=== PATIENT | male | born 1950 | race Caucasian/White ===

== ENCOUNTER 2018-12-04 09:37 | Day surgery (SDC) | payer MEDICARE, OTHER ==
[~2018-12-04] VITALS: Ht 167.6 cm; Wt 81.8 kg
[2018-12-04 10:09] LABS: HEMATOCRIT 44.2 % (42.0-54.0); HEMOGLOBIN 15.3 g/dL (13.5-17.5); MCHC 34.6 g/dL (31.0-37.0); MCV 89.5 fL (80.0-100.0); MEAN PLATELET VOLUME 9.7 fL (7.4-10.4); RBC 4.94 10x6/uL (4.20-6.10); RDW 14.1 % (11.5-14.5); WBC 12.2 10x3/uL (4.8-10.8)
[2018-12-04] MEDS ORDERED: LISINOPRIL10 MG (10:36)
--- NOTE | 2018-12-04 10:49 | NUR ---
1040 DR BRASWELL HERE TO READ THE 12 LEAD EKG THAT HAS ABNORMAL FINDINGS. PT DENIES CP OR ANY HX OF CO. STATES THAT LAST MONTH HE HAD A STRESS TEST IN DR BLUM'S OFFICE AND WAS TOLD THAT HE PASSED IT. PT STATES HE WAS NOT REFERRED TO MEDIA CLERK FOR FURTHER TESTING OR EVALUATION.
[2018-12-04 11:07] VITALS: BP 163/98; BMI 29.1
[2018-12-04 11:13] VITALS: BP 164/104; Ht 167.6 cm; Wt 81.8 kg
--- NOTE | 2018-12-04 11:16 | NUR ---
1110 PT REPORTS A HX OF MALIGNANT HYPERTHERMIA IN 2005. STATES HE PACKED DOWN WITH ICE. NOTIFIED CAMERON MULLER CRNA OF PT'S HX OF MH.
--- NOTE | 2018-12-13 16:44 | OP ---
PATIENT NAME: ROSA LANDEROS MEDICAL RECORD: [id number] :50 LOCATION:[facility] ADMISSION DATE: SURGEON: LESLIE TRINH DO DATE OF OPERATION: 12/04/2018 PROCEDURES: Colonoscopy with polypectomy. INDICATIONS FOR PROCEDURE: Change in bowel habits and abnormal weight loss. SCOPE: Olympus video pediatric colonoscope. MEDICATIONS: Propofol 400 mg IV per anesthesia. WITHDRAWAL TIME: 29 minutes. ESTIMATED BLOOD LOSS: Minimal. COMPLICATIONS: None. FINDINGS: Informed consent was given. The patient was made comfortable with the above medication. After reaching an adequate level of sedation by slow IV push, the patient was placed on his left side. A digital rectal examination was performed and was normal. The endoscope was then advanced under direct visualization through the rectum to the cecum, confirmed by the presence of the appendiceal orifice and ileocecal valve. The endoscope was slowly withdrawn and mucosa was carefully examined. The prep quality was fair. There were 4 polyps visualized on today's examination. Three of these were located in the transverse colon. They were all benign appearing and sessile and ranged in size from 4 mm - 7mm in diameter. Two of these polyps were removed using a hot snare and one was removed using hot forceps. The final polyp was located in the descending colon. It was a benign-appearing sessile polyp and measured approximately 4-5 mm in diameter. It was removed using hot forceps. There was evidence of mild diverticulosis involving the descending and sigmoid colon. Retroflexion was performed in the rectum with visualization of grade I internal hemorrhoids without active bleeding. The endoscope was withdrawn from the patient. The patient tolerated the procedure well and there were no complications. IMPRESSION: 1. Four polyps as described above, removed using a combination of hot snare and hot forceps. 2. Mild diverticulosis of the descending and sigmoid colon. 3. Grade I hemorrhoids without bleeding. PLAN AND RECOMMENDATIONS: 1. Discharged home when recovery parameters are met. 2. Follow up biopsy specimen results. 3. High-fiber diet. 4. Continue current medications. 5. Consider supplementation of diet with 1 tablespoon of Metamucil or another psyllium husk fiber daily. 6. Recall colonoscopy in 3 years for surveillance of polyps. OPERATIVE REPORT [id number] ROSA LANDEROS TRANSINT:[id number] Voice Confirmation ID: [id number] DOCUMENT ID: [id number] LESLIE TRINH DO at 1644 CC: [id number] DICTATION DATE: 12/04/18 1247 [employer] [facility]: 12/04/18 193 [facility] 12/04/18 [facility] [address] [place] [address]
== END 2018-12-04 13:40 | disposition home or self-care (01) ==
LOC: D.OPS 09:37
PROVIDERS: Anesthesiology; ATTEND Internal Medicine Gastroenterology
DX: R19.4 Change in bowel habit (principal); R63.4 Abnormal weight loss; K63.5 Polyp of colon; K57.90 Diverticulosis of intestine, part unspecified, without perforation or abscess without bleeding; K64.0 First degree hemorrhoids

== ENCOUNTER 2019-12-26 14:38 | Inpatient (IN) | payer MEDICARE, OTHER ==
[~2019-12-26] VITALS: Ht 167.6 cm; Wt 91.4 kg
--- NOTE | ~2019-12-26 | HEMODYNAMI ---
PATIENT:ROSA LANDEROS MEDICAL RECORD: [id number] : 50 [facility] DATE: 12/26/19 Generatedon:12/28/201914:59 Patient name: ROSA LANDEROS Patient #: [id number] SSN: [id number] : 1950 Date of study: 12/28/2019 Page: Of Hemodynamic Procedure Report Patient Data Patient Demographics Procedure consent was obtained First Name: ROSA Gender: Male Last Name: LETI : 1950 Patient #: [id number] Age: 69 year(s) Race: SSN: [id number] Additional ID: [id number] Contact details Address: [address] [place] [address] rd State: [place] City: [facility] Zip code: [address] Past Medical History Allergies Allergen Reaction Date Comments Reported Other allergy 12/28/2019 FLU VACCINE Admission Admission Data Admission Date: 12/26/2019 Admission Time: 17:05 Arrival Date: 12/28/2019 Arrival Time: 0:00 Admit Source: Other Insurance Payor: Medicare Room #: D.2115 [facility] #: [id number] Height (in.): 66 BSA: 2.09 (m2) Height (cm.): 167.64 BMI: 35.74 (kg/m2) Weight (lbs.): 221.46 Weight (kg.): 100.45 Lab Results Lab Result Date: 12/28/2019 Lab Result Time: 0:00 Biochemistry Name Units Result Min Max BUN mg/dl 28 --(----)-* 7 18 Creatinine mg/dl 1.6 --(----)-* 0.6 1.3 eGFR ml/min 46 *-(----)-- 90 120 NONAFRICAN CBC Name Units Result Min Max Hematocrit % 45 --(*---)-- 42 54 Hemoglobin g/dl 13.8 --(*---)-- 13.5 17.5 Procedure Procedure Types Cath Procedure Diagnostic Procedure [facility] w/Coronaries Sedation Charges Moderate Sedation 10-24 minutes PCI Procedure Coronary Stent Coronary Stent Initial Coronary Stent Additional Hemochron ACT Test Procedure Description Procedure Date Procedure Date: 12/28/2019 Procedure Start Time: 14:27 Procedure End Time: 14:58 Procedure Staff Name Function Azar Perez MD Performing Physician Arpita Reinoso RT Monitor Candi Black RT Scrub Ashley Hooper RN Nurse Procedure Data Cath Procedure Fluoroscopy Diagnostic fluoroscopy Total fluoroscopy Time: 6.4 time: 6.4 min min Diagnostic fluoroscopy Total fluoroscopy dose: 987 dose: 987 mGy mGy Contrast Material Contrast Material Type Amount (ml) Isovue 370 126 Entry Location Entry Primary Successful Side Size Upsize Upsize Entry Closure Succes sful Closure Location (Fr) 1 (Fr) 2 (Fr) Remarks Device Remarks Femoral Right 5 Fr 6 Fr Exoseal artery Short Estimated blood loss: 10 ml Diagnostic catheters Device Type Used For End Catheter Placement MULTIPACK JL 4.0 5Fr Procedure catheter MULTIPACK 3DRC 5Fr Procedure catheter MULTIPACK Pigtail 5 Fr Procedure catheter Procedure Complications No complications Procedure Medications Medication Administration Route Dosage Oxygen etCO2 Nasal cannula 2 l/min Lidocaine 2% added to field 20 Heparin Flush Bag added to field 2 bags (1000units/500ml NS) 0.9% NaCl I.V. 50 ml/hr Versed I.V. 1 mg Fentanyl I.V. 50 mcg Versed I.V. 1 mg Fentanyl I.V. 50 mcg Heparin Bolus I.V. 5000 units Integrilin (Bolus I.V. 9 ml 2mg/ml) Plavix P.O. 600 mg Hemodynamics Rest BSA: 2.09 (m2) HGB: 13.8 (g/dl) O2 Consumption: Estimated: 241.92 (ml/min) O2 Co nsumption indexed: Estimated:115.75 (ml/min/m) Heart Rate: 70 (bpm) Pressure Samples Time Site Value (mmHg) Purpose Heart Use Rate(bpm) 14:33 LV 95/21,16 Snapshot 73 Gradients Valve Time Site Site Mean SEP/DFP Peak To Heart Use 1 2 (mmHg) (sec/min) Peak Rate (mmHg) (bpm) Aortic 14:33 LV AO 68 Snapshots Pre Cath Intra NCS Post Cath Vital Signs Time Heart Resp SPO2 etCO2 NIBP (mmHg) Rhythm Pain Sedation Rate (ipm) (%) (mmHg) Status Level (bpm) 14:13:53 68 14 98 0 127/87(107) NSR 0 (11) 10(A) , No pain 14:18:05 66 18 96 27.2 130/92(113) NSR 0 (11) 10(A) , No pain 14:22:21 67 17 96 24.9 119/85(106) NSR 0 (11) 10(A) , No pain 14:27:26 68 14 93 32.5 137/87(113) NSR 0 (11) 10(A) , No pain 14:31:38 69 21 96 11.3 136/95(114) NSR 0 (11) 9(A) , No pain 14:35:56 68 19 97 28.7 136/81(112) NSR 0 (11) 9(A) , No pain 14:40:16 66 19 97 13.6 133/81(111) NSR 0 (11) 9(A) , No pain 14:44:31 66 14 96 15.9 123/86(106) NSR 0 (11) 9(A) , No pain 14:48:42 74 15 95 18.1 130/86(105) NSR 0 (11) 10(A) , No pain 14:52:56 68 14 96 22.7 131/88(111) NSR 0 (11) 10(A) , No pain 14:57:12 68 10 96 26.4 138/84(101) NSR 0 (11) 10(A) , No pain Medications Time Medication Route Dose Verified Delivered Reason Notes Effectiveness by by 14:26:31 Oxygen etCO2 2 Azar Ramirez used for Nasal l/min St Spencer Hooper RN procedure cannula 14:26:39 Lidocaine 2% added 20ml Azar Askew for local to vial [facility] anesthetic field MD CHARLES 14:26:45 Heparin Flush added 2 Azar Azar used for Bag to bags [facility] procedure (1000units/500ml field MD CHARLES NS) 14:26:56 0.9% NaCl I.V. 50 Azar Ramirez Per physician ml/hr St Spencer Hooper RN, MD 14:27:06 Versed I.V. 1 mg Azar Ramirez for sedation St Spencer Hooper RN, MD 14:27:12 Fentanyl I.V. 50 Azar Ramirez for sedation mcg St Spencer Hooper RN, MD 14:32:07 Versed I.V. 1 mg Azar Ramirez for sedation St Spencer Hooper RN, MD 14:32:14 Fentanyl I.V. 50 Azar Ramirez for sedation mcg St Spencer Hooper RN, MD 14:36:30 Heparin Bolus I.V. 5000 Azar Ramirez for verif ied units [facility] Spencer Hooper RN anticoagulation with dr MD brooks 14:39:16 Integrilin I.V. 9 ml Azar Ramirez for waste d 1 (Bolus 2mg/ml) St Spencer Hooper RN antiplatelet ml of MD therapy vial 14:52:38 Plavix P.O. 600 Azar Ramirez for mg [facility] Spencer Hooper RN antiplatelet MD therapy Procedure Log Time Note 14:02:09 Informed consent obtained and on chart 14:02:14 Diagnostic Cath Status : Urgent 14:02:45 Ashley Hooper RN sent for patient. Start room use. 14:02:45 Time tracking: Regular hours (M-F 7:00 - 5:00) 14:02:49 Plan of Care:Hemodynamics will remain stable., Cardiac rhythm will remain stable., Comfort level will be maintained., Respiratory function will remain adequate., Patient/ family verbilizes understanding of procedure., Procedure tolerated without complication., Recovers from procedure without complications.. 14:12:46 Patient received from Med II to CCL 1 Alert and oriented. Tansferred to table in Supine position. 14:12:46 Warm blankets applied, and fuentes hugger turned on for patient comfort. 14:12:47 Correct patient and procedure confirmed by team. 14:12:47 ECG and BP/O2 sat monitors applied to patient. 14:12:48 Vital chart was started 14:12:53 Rhythm: sinus rhythm 14:12:55 Baseline sample Acquired. 14:12:57 Full Disclosure recording started 14:13:09 Baseline sample Acquired. 14:13:25 H&P Date Dictated: 12/26/2019 Within 30 days and on chart., H&P Addendum completed by physician on day of procedure. (MUST COMPLETE FOR ALL OUTPATIENTS). 14:13:27 Pre-procedure instructions explained to patient. 14:13:28 Pre-op teaching completed and patient verbalized understanding. 14:13:29 Family in patients room. 14:13:30 Patient NPO since Midnight. 14:13:39 Patient allergic to Other allergyFLU VACCINE 14:13:41 Is the patient allergic to Iodine/contrast media? No. 14:13:42 Is patient on blood thinner?No 14:13:48 Patient diabetic? No. PT. STATES BEEN GIVEN INSULIN IN HOSPITAL 14:13:51 Previous problem with sedation/anesthesia? No ? 14:13:52 Snore? Yes 14:14:18 Sleep apnea? No 14:14:20 Deviated septum? No 14:14:20 Opens mouth fully? Yes 14:14:21 Sticks out tongue? Yes 14:14:23 Airway obstruction? No ? 14:14:25 Dentures? No ? 14:14:29 Pre procedure: right dorsailis pedis pulse 1+ Palpable, but thready & weak; easily obliterated 14:14:44 Patient pain scale 0/10 ?. 14:15:02 IV patent on arrival in left wrist with 0.9% NaCl at [facility]. 14:15:25 Lab Result : BUN 28 mg/dl 14:15:25 Lab Result : eGFR NONAFRICAN 46 ml/min 14:15:25 Lab Result : Creatinine 1.6 mg/dl 14:15:25 Lab Result : Hemoglobin 13.8 g/dl 14:15:25 Lab Result : Hematocrit 45 % 14:15:29 Lab results completed and on chart. 14:15:34 Right groin area was prepped with chlora-prep and draped in sterile fashion 14:15:35 Alarms reviewed by R. N. 14:15:36 Sharps counted by scrub and verified by R.N. 14:20:23 Arrival Date: 12/28/2019 12:00:00 AM 14:20:24 Admit Source: Other 14:20:27 Insurance Payor : Medicare 14:20:56 Patient Height : 66 inches 14:21:03 Patient Weight : 221.46 lbs 14:21:24 ACC Patient presents with Unstable Angina CCS Anginal Class 2--Slight limitation of ordinary activity. 14:21:37 Use device set Femoral Dx 14:21:38 ACIST Syringe (90528) opened to sterile field. 14:21:38 Bag Decanter (2002S) opened to sterile field. 14:21:39 Medline Cath Pack ([id number]) opened to sterile field. 14:21:40 ACIST Hand Control (10026) opened to sterile field. 14:21:41 ACIST Manifold (42451) opened to sterile field. 14:21:41 DIAGNOSTIC Multipack 5Fr catheter set (TZ8509) opened to sterile field. 14:21:42 SHEATH 5FR [place] (DNT311) opened to sterile field. 14:21:43 EMERALD Guide Wire (571-014) opened to sterile field. ::33 --------ALL STOP TIME OUT------ ::33 Final Timeout: patient, procedure, and site verified with staff and physician. All members of the team are in agreement. 14::36 Right groin site verified by team. 14::39 Fire Safety Assessment: A--An alcohol-based skin anteseptic being used preoperatively., C--Open oxygen or nitrous oxide is being used., D--An ESU, laser, or fiber-optic light is being used. 14::42 Physical assessment completed. ASA score P 2 - A patient with mild systemic disease as per Azar Perez MD. 14:23:46 3a) 45-59 Moderately reduced kidney function. 14:23:49 Maximum allowable contrast dose (3.7 X eGFR X 0.75)128 ml. 14:23:54 Sedation plan: IV Moderate Sedation Medication:Versed, Fentanyl 14:26:31 Oxygen 2 l/min etCO2 Nasal cannula was administered by Ashley Hooper RN; used for procedure; Verbal order read back and verified. 14:26:39 Lidocaine 2% 20ml vial added to field was administered by Azar Perez MD; for local anesthetic; Verbal order read back and verified. 14:26:45 Heparin Flush Bag (1000units/500ml NS) 2 bags added to field was administered by Azar Perez MD; used for procedure; Verbal order read back and verified. 14:26:56 0.9% NaCl 50 ml/hr I.V. was administered by Ashley Hooper RN; Per physician; Verbal order read back and verified. 14:27:06 Versed 1 mg I.V. was administered by Ashley Hooper RN; for sedation; Verbal order read back and verified. 14:27:12 Fentanyl 50 mcg I.V. was administered by Ashley Hooper RN; for sedation; Verbal order read back and verified. 14:27:52 Procedure started. 14:27:56 Local anesthetic to right femoral artery with Lidocaine 2% by Azar Perez MD.INITIAL ACCESS ONLY 14:29:14 A 5 Fr sheath was inserted into the Right Femoral artery 14:29:43 A MULTIPACK JL 4.0 5Fr catheter was advanced over the wire and used for Procedure. 14:30:06 LCA angiography performed. 14:30:10 Injector settings: Ml/sec: 3, Volume: 6, 14:31:09 Catheter removed. 14:31:14 A MULTIPACK 3DRC 5Fr catheter was advanced over the wire and used for Procedure. 14:32:06 RCA angiography performed. 14:32:07 Versed 1 mg I.V. was administered by Ashley Hooper RN; for sedation; Verbal order read back and verified. 14:32:08 Injector settings: Ml/sec: 3, Volume: 6, 14:32:14 Fentanyl 50 mcg I.V. was administered by Ashley Hooper RN; for sedation; Verbal order read back and verified. 14:32:19 ACCDominant side:Right 14:32:25 Catheter removed. 14:32:31 A MULTIPACK Pigtail 5 Fr catheter was advanced over the wire and used for Procedure. 14:32:[address] DIETRICH PCI 14:33:09 LV gram done using STALLWORTH 14:33:16 Injector settings: Ml/sec: 5, Volume: 15, 14:33:17 LV hemodynamics recorded. 14:33:29 EF : 15 % 14:33:55 Catheter removed. 14:33:56 Proceeding to intervention. 14:34:00 SHEATH 6FR [place] (DQN782) opened to sterile field. 14:34:06 INFLATOR Merit BasixCompak (RD9696) opened to sterile field. 14:34:09 GUIDE 6FR XBLAD 3.5 catheter ([id number]) opened to sterile field. 14:34:17 BMW 300cm Straight [place] 2 wire ([id number]) opened to sterile field. 14:34:36 Sheath upsized to a 6 Fr Short. 14:35:08 6 Fr XBLAD 3.5 guide catheter was inserted over the wire 14:35:10 ACC Pre-intervention JERRY Flow is 3. 14:36:30 Heparin Bolus 5000 units I.V. was administered by Ashley Hooper RN; for anticoagulation; verified with dr brooks Verbal order read back and verified. 14:37:21 UNABLE TO ENGAGE WITH XBLAD 3.5 CHANGING GUIDES. 14:37:56 GUIDE 6FR XBLAD 4.0 catheter ([id number]) opened to sterile field. 14:38:05 6 Fr XBLAD 4 guide catheter was inserted over the wire 14:38:56 Pre PCI Site: [place] Circ has 90% stenosis. 14:39:16 Integrilin (Bolus 2mg/ml) 9 ml I.V. was administered by Ashley Hooper RN; for antiplatelet therapy; wasted 1 ml of vial Verbal order read back and verified. 14:39:42 BMW 300 wire advanced. 14:39:44 Wire advanced across lesion. 14:42:23 Place stent Inflation Number: 1 A JARAD RX 3.0 x 18 stent ([id number]) was prepped and advanced across the Mid CX 90. The stent was deployed at 14 PRESLEY for 0:00 (min:sec) . 14:47:18 Wire redirected to OM. 14:47:19 Pre PCI Site: [place] OM1 has 80% stenosis. 14:47:56 EXOSEAL 5Fr (EX500) opened to sterile field. 14:48:38 Place stent Inflation Number: 1 A JARAD RX 3.0 x 15 stent ([id number]) was prepped and advanced across the 1st Ob Nguyen 80. The stent was deployed at 12 PRESLEY for 0:00 (min:sec) . 14:49:49 Stent catheter was removed intact over wire. 14:49:50 Wire removed. 14:49:50 Guide catheter removed. 14:49:54 EXOSEAL 6Fr (EX600) opened to sterile field. 14:50:22 Sheath removed intact; hemostasis achieved with Exoseal to the Right Femoral artery. 14:50:24 Procedure ended.(Physican Out) 14:52:37 Fluoroscopy time 06.40 minutes. 14:52:38 Plavix 600 mg P.O. was administered by Ashley Hooper RN; for antiplatelet therapy; Verbal order read back and verified. 14:52:42 Fluoroscopy dose: 987 mGy 14:52:42 Flurop Dose total: 987 14:52:48 Dose Area Product 83172 mGy/cm. 14:52:52 Contrast amount:Isovue 370 126ml. 14:52:54 Maximum allowable dose exceeded? No. 14:52:55 Sharps counted by scrub and verified by R.N. 14:52:59 Post-op/insertion site Right Femoral artery dressed using a 4 x 4 and Tegaderm. 14:53:02 Post right femoral artery:stable, soft, clean and dry 14:53:04 Post Procedure Pulses reassessed and unchanged 14:53:07 Post procedure: right dorsailis pedis pulse 2+ Normal; easily identifiable; not easily obliterated. 14:53:11 Post-procedure physical assessment completed. ASA score P 2 - A patient with mild systemic disease as per Azar Perez MD. 14:53:13 Post procedure rhythm: unchanged. 14:53:15 Estimated blood loss: 10 ml 14:53:17 Post procedure instruction explained to patient.Patient verbalizes understanding. 14:53:18 Patient needs reinforcement of post procedure teaching. 14:54:10 Procedure type changed to Cath procedure, Diagnostic procedure, LHC, C w/Coronaries, Sedation Charges, Moderate Sedation 10-24 minutes, PCI procedure, Coronary Stent, Coronary Stent Initial, Coronary Stent Additional, Hemochron ACT Test 14:55:33 FEMSTOP Gold (V80429) opened to sterile field. 14:55:38 Procedure and supply charges have been captured, reviewed, submitted and are correct. 14:55:41 Procedure Complication : No complications 14:55:45 [facility] Findings: MVD- PCI performed (see procedure note) 14:55:46 Operative report dictated upon procedure completion. 14:55:46 See physician's report for complete and final results. 14:55:49 Report given to [facility]. 14:55:53 Patient transfered to [facility] with Bed. 14:58:52 Femstop placed over the right femoral artery at 200 mmHg. Hemostasis achieved. 14:58:57 Procedure ended. 14:58:57 Full Disclosure recording stopped 14:59:05 ACC-PCI Only Patient was given prescriptions, or instructed by Azar Perez MD to start/continue the following medications upon discharge: Plavix 14:59:06 End room use (Document Last) 14:59:16 End room use (Document Last) 14:59:31 End room use (Document Last) 14:59:32 ACT drawn and resulted at 285 seconds. (normal therapeutic range 180-240 seconds). 14:59:46 Vital chart was stopped Intervention Summary Intervention Notes Time ActionType Lesion and Equipment Used Action# Pressure Duration Attributes 14:42:23 Place stent Mid CX JARAD RX 3.0 x 1 14 00:00 18 stent ([id number]) 14:48:38 Place stent 1st Ob Nguyen JARAD RX 3.0 x 1 12 00:00 15 stent ([id number]) Device Usage Item Name Manufacture Quantity Catalog Hospital Part Current [facility] Lot# / Number Charge Number Stock Stock Serial# Code ACIST Syringe Acist 1 31127 468165 266916 405551 20 (80806) Medical Systems Inc Bag Decanter Microtek 1 2001S 416598 67891 834983 5 (2001S) Medical Inc. Medline Cath Medline 1 [id number] 859193 54494 403128 5 Pack ([id number]) ACIST Hand Acist 1 88751 744038 972880 075950 5 Control Medical (02415) Systems Inc ACIST Manifold Acist 1 53153 243328 246039 944695 5 (29080) Medical Systems Inc DIAGNOSTIC Cardinal 1 [id number] 951898 95186 042438 30 Multipack 5Fr Health catheter set (VI1209) SHEATH 5FR Terumo 1 MYQ095 060347 995366 871174 5 [place] (TBR925) EMERALD Guide Cardinal 1 502-455 569190 602792 328968 5 Wire (502-455) Health MULTIPACK JL Cardinal 1 190301 5 4.0 5Fr Health catheter MULTIPACK 3DRC Cardinal 1 296341 5 5Fr catheter Health MULTIPACK Cardinal 1 056878 5 Pigtail 5 Fr Health catheter SHEATH 6FR Terumo 1 BYG872 768011 182013 995975 40 [place] (EFM340) INFLATOR Merit Merit 1 VC4349 132550 152904 404861 15 BasixCommnBuddy Drinks Medical (NB3453) GUIDE 6FR Cardinal 1 [id number] 230969 323270 828958 10 XBLAD 3.5 Health catheter ([id number]) BMW 300cm Luna 1 3074873 755781 560914 449249 5 Straight Vascular [place] 2 wire (9420855) GUIDE 6FR Cardinal 1 [id number] 142004 724014 300331 3 XBLAD 4.0 Health catheter ([id number]) JARAD RX 3.0 x Medtronic 1 [id number] 547699 2903102 004605 5 [id number] 18 stent ([id number]) EXOSEAL 5Fr Cardinal 1 EX500 199954 607277 895631 10 (EX500) Health JARAD RX 3.0 x Medtronic 1 [id number] 502989 4870533 144757 5 [id number] 15 stent ([id number]) EXOSEAL 6Fr Cardinal 1 EX600 205118 719986 138902 10 (EX600) Health FEMSTOP Gold St Kevin 1 G72805 694367 288690 534114 5 ([id number]) Signature Audit [place] Stage Time Signature Unsigned Intra-Procedure 12/28/2019 Arpita Reinoso 2:59:16 PM RT(R) Intra-Procedure 12/28/2019 Ashley Hooper RN 2:59:31 PM Intra-Procedure 12/28/2019 Azar Burger 2:59:45 PM Spencer [facility] [address] [place] [address]
[~2019-12-26 14:38] MED LIST: LISINOPRIL10 MG
[2019-12-26 15:16] VITALS: BP 165/95
[2019-12-26 15:29] LABS: BASOPHILS 0.2 % (0-2); EOSINOPHILS 1.7 % (0-7); HEMATOCRIT 46.6 % (42.0-54.0); HEMOGLOBIN 14.6 g/dL (13.5-17.5); IMMATURE GRANULOCYTES 0.2 % (0-5); LYMPHOCYTES 10.5 % (15-50); MCH 29.5 pg (26.0-34.0); MCHC 31.3 g/dL (31.0-37.0); MCV 94.1 fL (80.0-100.0); MEAN PLATELET VOLUME 9.6 fL (7.4-10.4); MONOCYTES 8.9 % (2-11); NEUTROPHILS 78.5 % (40-80); PLATELET COUNT 143 10x3/uL (130-400); RBC 4.95 10x6/uL (4.20-6.10); RDW 15.7 % (11.5-14.5); WBC 9.5 10x3/uL (4.8-10.8)
[2019-12-26 15:46] LABS: APTT 29.3 SECONDS (22.8-39.4); INR 1.28 (0.85-1.17); PROTIME 15.9 SECONDS (11.6-15.0)
[2019-12-26 15:53] LABS: CALC OSMOLALITY 293 mosm/kg (275-300); CALCIUM 8.4 mg/dL (8.5-10.1); CARBON DIOXIDE 28.2 mmol/L (21.0-32.0); CHLORIDE - SERUM 107 mmol/L (98-107); CREATININE - SERUM 1.6 mg/dL (0.6-1.3); GLUCOSE 182 mg/dL (74-106); POTASSIUM - SERUM 3.9 mmol/L (3.5-5.1); SODIUM 141 mmol/L (136-145); UREA NITROGEN 34 mg/dL (7-18); eGFR NON AFRICAN AMERICAN 46 mL/min (90-120)
[2019-12-26 16:10] LABS: ALBUMIN 3.2 g/dL (3.4-5.0); ALKALINE PHOSPHATASE 85 U/L (30-120); ALT (SGPT) 21 U/L (10-68); BILIRUBIN - TOTAL 1.14 mg/dL (0.2-1.3); CKMB 8.7 U/L (0.0-3.6); CREATINE KINASE 205 UL (21-232); PRO BNP 13086 pg/mL (0-125); PROTEIN - SERUM 6.5 g/dL (6.4-8.2)
[2019-12-26 17:00] VITALS: BP 159/105
--- NOTE | 2019-12-26 18:39 | NUR ---
COVID SWAB COLLECTED AND SENT TO THE LAB.
--- NOTE | 2019-12-26 19:10 | NUR ---
REPORT TO RACHEL JANE
[2019-12-26 19:15] VITALS: BP 159/98
[2019-12-26 20:00] VITALS: BP 154/102
--- NOTE | 2019-12-26 20:30 | NUR ---
PT ARRIVED TO FLOOR VIA WC AOX4, AMBULATED TO BED. SWELLING TO BILAT UPPER AND LOWER EXT.+2 TO LEFT LOWER LEG, +1 TO RIGHT LOWER LEG. PT STATES HE GETS SOB WITH EXERTION. BILAT LOWER LOBES DIMINISHED. PLACED HAT IN TOILET TO KEEP UP WITH I&0, PT DID NOT WANT TO USE URINAL. IV TO RIGHT HAND SL. VSS. PROVIDED INCENTIVE SPIROMETER AND EDUCATED ON USE. PT DEMONSTRATED HOW TO USE PROPERLY. PT STATES HE IS HUNGRY, PROVIDED WITH SANDWICH AND [place] SODA. CHECKED FSBS 188, COVERAGE PER SS. SEE MAR. DENIES OTHER NEEDS. CL IN REACH, WILL CTM
[2019-12-26] MEDS ORDERED: K-DUR20 MEQ PO (20:36)
[2019-12-26] MEDS ORDERED: FUROSEMIDE20 MG PO (20:36)
[2019-12-26] MEDS ORDERED: COREG12.5 MG PO (20:37)
[2019-12-26] MEDS ORDERED: ONDANSETRON ODT8 MG PO (20:37)
[2019-12-26] MEDS ORDERED: LIPITOR20 MG PO (20:37)
[2019-12-26] MEDS ORDERED: ZOLOFT50 MG PO (20:37)
--- NOTE | 2019-12-26 21:00 | NUR ---
CALLED TELE FOR MONITOR, NONE AVAILABLE AT THIS TIME
[2019-12-26 22:35] LABS: CKMB 7.6 U/L (0.0-3.6); CREATINE KINASE 185 UL (21-232)
[2019-12-26 22:43] LABS: TROPONIN-I 0.075 ng/mL (0.000-0.060)
[2019-12-26 22:56] VITALS: BP 183/102; BMI 35.7
[2019-12-27] VITALS: BP 150/89
[2019-12-27 04:00] VITALS: BP 150/98
[2019-12-27 06:10] LABS: ALBUMIN 2.8 g/dL (3.4-5.0); ALKALINE PHOSPHATASE 73 U/L (30-120); BILIRUBIN - TOTAL 0.89 mg/dL (0.2-1.3); CARBON DIOXIDE 29.6 mmol/L (21.0-32.0); CHLORIDE - SERUM 107 mmol/L (98-107); CKMB 5.7 U/L (0.0-3.6); CREATINE KINASE 138 UL (21-232); CREATININE - SERUM 1.5 mg/dL (0.6-1.3); POTASSIUM - SERUM 3.4 mmol/L (3.5-5.1); PROTEIN - SERUM 5.7 g/dL (6.4-8.2); SODIUM 147 mmol/L (136-145); UREA NITROGEN 34 mg/dL (7-18); eGFR NON AFRICAN AMERICAN 49 mL/min (90-120)
[2019-12-27 06:14] LABS: ALT (SGPT) 15 U/L (10-68); CALC OSMOLALITY 299 mosm/kg (275-300); GLUCOSE 98 mg/dL (74-106); TROPONIN-I 0.109 ng/mL (0.000-0.060)
[2019-12-27 06:26] LABS: HEMATOCRIT 44.6 % (42.0-54.0); HEMOGLOBIN 13.8 g/dL (13.5-17.5); LYMPHOCYTES 18.3 % (15-50); MCH 29.1 pg (26.0-34.0); MCHC 30.9 g/dL (31.0-37.0); MCV 94.1 fL (80.0-100.0); MEAN PLATELET VOLUME 10.5 fL (7.4-10.4); NEUTROPHILS 70.1 % (40-80); PLATELET COUNT 153 10x3/uL (130-400); RBC 4.74 10x6/uL (4.20-6.10); RDW 15.9 % (11.5-14.5)
[2019-12-27 06:27] LABS: WBC 6.7 10x3/uL (4.8-10.8)
--- NOTE | 2019-12-27 09:00 | NUR ---
ALERT AND ORIENTED X4. LUNGS CTA WITH EDEMA 2+ NOTED TO BLE WITH PEDAL PULSES NOTED AND NEGATIVE HOMEN SIGN. BLE WTH ERRYTHEMA AND NOT WARM TO TOUCH. DENEIS ANY PAIN OR DISCOMFORT. ENCOURAGED TO USE CALL LIGHT FOR ASSIST. FAMILY PRESENT.
[2019-12-27 09:18] VITALS: BP 151/99
[2019-12-27 10:09] LABS: CHOL - HDL RATIO 3.6 ratio (2.3-4.9); LDL-HDL RATIO 2.1 ratio (1.5-3.5)
[2019-12-27 10:40] LABS: CKMB 6.2 U/L (0.0-3.6); CREATINE KINASE 146 UL (21-232)
[2019-12-27 10:43] LABS: TROPONIN-I 0.102 ng/mL (0.000-0.060)
[2019-12-27] MEDS ORDERED: GLIMEPIRIDE2 MG PO (11:03)
[2019-12-27] MEDS ORDERED: ENTRESTO 49 MG1 EACH PO (11:06)
[2019-12-27] MEDS ORDERED: SYMBICORT 16010.2 GM INH (11:07)
[2019-12-27 12:30] VITALS: BP 142/71
--- NOTE | 2019-12-27 15:15 | NUR ---
TRANSFERED TO RM 2115 DUE TO NEED FOR DOBUTAMINE DRIP. REPORT CALLED TO MED RAMOS. STABLE AT TIME OF DEPARTURE.
[2019-12-27 16:00] VITALS: BP 170/108
--- NOTE | 2019-12-27 18:38 | NUR ---
1515-PT TF TO ROOM 2114 FROM MED-SURGE, IV TO RIGHT HAND BLOODY, PT C/O STINGING AND PAIN TO AREA, IV REMOVED 20GA CATH INTACT--BANDAGE APPLIED, ATTEMPTED TO RESTART X'S 3 STICKS W/O SUCCESS. SCD'S IN PLACE. PT IS AWAKE, ALERT, ORIENTED X'S 3, RESP EVEN AND UNLABORED ON RA. PT IS AMBULATORY. NO DISTRESS NOTED, CB IN REACH.
[2019-12-27 20:00] VITALS: BP 139/93
--- NOTE | 2019-12-27 20:27 | NUR ---
REPORT RECIEVED AND ROUNDING COMPLETE. PATIENT DID NOT HAVE, PLACED A 20G 1 STICK TO THE LEFT FOREARM, PATIENT TOLERATED WELL. A&O X4, NO DISTRESS NOTED, 2+ EDEMA IN LOWER EXTREMITIES. NO NEEDS VOICED AT THIS TIME. 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 PATIENT UNDERSTAND. CALL LIGHT WITHIN REACH AND BED IN LOWEST LOCKED POSITION.
[2019-12-28 04:00] VITALS: BP 146/83
--- NOTE | 2019-12-28 07:19 | NUR ---
0705-LYING IN BED W/EYES CLOSED, RESP EVEN AND UNLABORED ON RA. NO DISTRESS NOTED. PT IS HAVING A HEART CATH TODAY, ALL CONSENTS HAVE BEEN SIGNED WITNESSED AND ON CHART. PT IS NPO.
[2019-12-28 07:37] LABS: BASOPHILS 0.1 % (0-2); EOSINOPHILS 2.4 % (0-7); HEMOGLOBIN 13.8 g/dL (13.5-17.5); IMMATURE GRANULOCYTES 0.1 % (0-5); LYMPHOCYTES 16.2 % (15-50); MCH 28.8 pg (26.0-34.0); MCHC 30.7 g/dL (31.0-37.0); MCV 93.9 fL (80.0-100.0); MEAN PLATELET VOLUME 9.9 fL (7.4-10.4); MONOCYTES 9.6 % (2-11); NEUTROPHILS 71.6 % (40-80); PLATELET COUNT 155 10x3/uL (130-400); RBC 4.79 10x6/uL (4.20-6.10); RDW 15.6 % (11.5-14.5); WBC 7.1 10x3/uL (4.8-10.8)
[2019-12-28 08:10] LABS: ALBUMIN 2.9 g/dL (3.4-5.0); ANION GAP 12.5 mmol/L (8-16); BILIRUBIN - TOTAL 0.92 mg/dL (0.2-1.3); CALCIUM 8.4 mg/dL (8.5-10.1); CARBON DIOXIDE 30.2 mmol/L (21.0-32.0); CREATININE - SERUM 1.6 mg/dL (0.6-1.3); POTASSIUM - SERUM 3.7 mmol/L (3.5-5.1); PROTEIN - SERUM 5.7 g/dL (6.4-8.2)
[2019-12-28 08:19] LABS: TROPONIN-I 0.066 ng/mL (0.000-0.060)
[2019-12-28 09:00] VITALS: BP 158/99
--- NOTE | 2019-12-28 10:58 | NUR ---
DUBATAMINE DRIP STOPPED AT THIS TIME, ZOFRAN ADMINISTERED/ORDER TO IV TO RT FA, PT TOLERATED ALL WELL. IV SITE WRAPPED UP WELL, VERBALLY EXPLAINED TO PT TO BATHE W/HIBACLENS CLEANSER-DO NOT USE ON FACE-USE LIGHTLY AROUND THE GENITAL AREA AND TO ONLY WEAR THE GOWN W/NO UNDERGARMENTS AFTER SHOWER W/UNDERSTANDING STATED TO ALL. MOF IN ROOM AT BEDSIDE.
--- NOTE | 2019-12-28 11:00 | NUR ---
1014-DR MCGINNIS'S NURSE RICH CONTACTED [facility] [place] STATION TELEPHONE ORDER TO GIVE PT ZOFRAN 4MG [id number] N/V.
--- NOTE | 2019-12-28 11:02 | NUR ---
0900-PT C/O FEELING VERY NAUSEATED--WILL HOLD PO MEDS FOR NOW AND CONTACT DR FOR NAUSEA MEDICATION.
[2019-12-28 13:02] VITALS: Ht 167.6 cm; Wt 91.4 kg
--- NOTE | 2019-12-28 14:37 | NUR ---
1315-PT GONE FOR HEART CATH AT THIS TIME.
--- NOTE | 2019-12-28 14:48 | NUR ---
1100-PT NO LONGER NAUSEATED--AM MEDS ADMINISTERED/ORDER, ATIVAN GIVEN/ORDER PT DENIES ANY NEEDS. NO DISTRESS NOTED.
--- NOTE | 2019-12-28 15:58 | NUR ---
1520-PT BACK IN ROOM FROM BOILERHOUSE MECHANIC, PT IS LYING FLAT NOT TO GET UP UNTIL 1900, MOF AT BEDSIDE. PT IS DROWSY FROM ANETHESIA, LIGHTLY MOANING. PULSES WNL. WILL CONTINUE TO MONITOR AND TO RELEASE BAND FROM GROIN AREA.
--- NOTE | 2019-12-28 19:04 | NUR ---
PT LYING IN BED FLAT UNTIL 7PM, GARTER BELT REMOVED-- ASSISTED PT UP TO BATHROOM FOR BM--CLEAN LINEN AND CLOTHING GIVEN TO PT. BROUGHT PT SOUP, SANDWICH, AND SPRITE/REQUEST, MOF AT BEDSIDE. NO DISTRESS NOTED.
--- NOTE | 2019-12-28 19:42 | NUR ---
RECEIVED BEDSIDE REPORT. ROUNDING COMPLETE. PATIENT IS ALERT AND ORIENTED, SITTING UP ON EDGE OF BED EATING SUPPER. RESPIRATIONS ARE EVEN AND UNLABORED. NO S/S OF DISTRESS. NO C/O PAIN. CALL LIGHT WITHIN REACH. WILL CPOC.
[2019-12-28 21:00] VITALS: BP 131/75
[2019-12-29 05:00] VITALS: BP 132/81
--- NOTE | 2019-12-29 07:00 | NUR ---
RECEIVED REPORT. ASSUMED CARE OF PATIENT. PATIENT RESTING IN BED WITH EYES CLOSED. EASILY AROUSED. DOBUTAMINE INFUSING AT 14. REMAINS SR ON TELEMETRY, RATE 73. WHITE BOARD UPDATED, BEDSIDE SHIFT REPORT COMPLETE. NO DISTRESS. PATIENT REQUESTING ICE CREAM AT THIS TIME.
--- NOTE | 2019-12-29 07:10 | NUR ---
ICE CREAM PROVIDED REQUESTED AT THIS TIME.
[2019-12-29 07:13] LABS: BASOPHILS 0.2 % (0-2); EOSINOPHILS 2.5 % (0-7); HEMATOCRIT 42.8 % (42.0-54.0); HEMOGLOBIN 13.2 g/dL (13.5-17.5); IMMATURE GRANULOCYTES 0.2 % (0-5); LYMPHOCYTES 14.6 % (15-50); MCH 28.9 pg (26.0-34.0); MCHC 30.8 g/dL (31.0-37.0); MCV 93.7 fL (80.0-100.0); MONOCYTES 10.8 % (2-11); NEUTROPHILS 71.7 % (40-80); PLATELET COUNT 161 10x3/uL (130-400); RBC 4.57 10x6/uL (4.20-6.10); RDW 15.6 % (11.5-14.5); WBC 6.5 10x3/uL (4.8-10.8)
[2019-12-29 07:45] LABS: ALBUMIN 2.7 g/dL (3.4-5.0); ANION GAP 12.4 mmol/L (8-16); BILIRUBIN - TOTAL 0.77 mg/dL (0.2-1.3); CALCIUM 8.7 mg/dL (8.5-10.1); CARBON DIOXIDE 28.7 mmol/L (21.0-32.0); CREATININE - SERUM 1.6 mg/dL (0.6-1.3); POTASSIUM - SERUM 4.1 mmol/L (3.5-5.1); PROTEIN - SERUM 5.6 g/dL (6.4-8.2)
[2019-12-29] MEDS ORDERED: ALDACTONE25 MG PO (10:07)
[2019-12-29] MEDS ORDERED: PLAVIX75 MG PO (10:08)
[2019-12-29 10:53] VITALS: BP 139/88
--- NOTE | 2019-12-29 11:43 | NUR ---
FSBS 108. NO INSULIN ADMINISTRATION PER SLIDING SCALE.
--- NOTE | 2019-12-29 11:53 | NUR ---
DR. JACKSON PAGED TO REQUEST DISCHARGE INSTRUCTIONS FROM CARDIOLOGY PER .
--- NOTE | 2019-12-29 11:55 | NUR ---
PER , OKAY TO DISCHARGE FROM CARDIOLOGY STANDPOINT.
--- NOTE | 2019-12-29 11:59 | NUR ---
BERTHA ANDROID SOFTWARE ENGINEER CONTACTED AND REQUESTED TO COME TO UNIT FOR CONSULTATION PRIOR TO PATIENT DISCHARGING AT THIS TIME. BERTHA TO UNIT SOON.
--- NOTE | 2019-12-29 12:09 | MORECARE ---
CASE MANAGEMENT DISCHARGE SUMMARY PATIENT: ROSA LANDEROS UNIT: [id number] ADM DATE: 12/26/19 AGE: 69 : 50 SEX: M ROOM/BED: D.2115 AUTHOR: ALYSIA PLASCENCIA PHYSICIAN: REFERRING PHYSICIAN: MILO MCGINNIS MD DATE OF SERVICE: 12/29/19 Discharge Plan Patient Name: ROSA LANDEROS Facility: [facility]:[place] : 1950 Planned Disposition: Home Anticipated Discharge Date: 12/29/19 Discharge Date: Expected LOS: 3 Initial Reviewer: [email or web address] Initial Review Date: 12/26/2019 Generated: 12/29/19 1:09 pm Patient Name: ROSA LANDEROS Page 51110 at 1209 All edits/amendments must be made on the electronic document DICTATION DATE: 12/29/19 120 ALLOPATHIC DOCTOR: JOSE 12/29/19 1209 RPT#: [id number] DC DATE: STATUS: ADM IN [facility] [address] [place] [address] END OF REPORT
--- NOTE | 2019-12-29 12:16 | MORECARE ---
CASE MANAGEMENT DISCHARGE SUMMARY PATIENT: ROSA HADLEY UNIT: [id number] ADM DATE: 12/26/19 AGE: 69 : 50 SEX: M ROOM/BED: D.2635 AUTHOR: ALYSIA PLASCENCIA PHYSICIAN: REFERRING PHYSICIAN: MILO MCGINNIS MD DATE OF SERVICE: 12/29/19 Discharge Plan Patient Name: ROSA HADLEY Facility: [facility]:[place] : 1950 Planned Disposition: Home Anticipated Discharge Date: 12/29/19 Discharge Date: Expected LOS: 3 Initial Reviewer: [email or web address] Initial Review Date: 12/26/2019 Generated: 12/29/19 1:16 pm Comments DCP- Discharge Planning Updated by [email or web address]: Douglas Cohen on 12/29/19 11:[address] Patient Name: ROSA HADLEY Admission Status: ER Accout number: [id number] Admission Date: 12-26-2019 : 1950 Admission Diagnosis:SHORTNESS OF BREATH Attending: MILO MCGINNIS Current LOS: 3 Anticipated DC Date: 12-29-2019 Planned Disposition: Home Primary Insurance: MEDICARE A & B Discharge Planning Comments: CM met with patient to complete DC plan and needs. CM educated patient on the CM role and verbal consent was given by patient to complete assessment. CM verified patient's address, phone number, and emergency contact phone numbers. Patient lives at home with his spouse, Yina Hadley, . At discharge patient plans to return home and feels this is a safe discharge. The patient has a ramp to navigate to enter the home and it is safe. Patient fills his medications at [facility] [place] CM discussed availability of home health, rehab services, and medical equipment. Patient declined HHS, SNF, IPR, and DME. The patient neither mentioned nor discussed any other discharge needs and he is satisfied with DC plan. Transportation provider at discharge will be with his spouse, Yina. DC IMM delivered, explained, signed by the patient, and placed in chart. Signed form also left with the patient. CM will continue to follow and will assist as needed with dc plans/needs. Laser Print Operator: Douglas Cohen DCPIA - Discharge Planning Initial Assessment Updated by [email or web address]: Douglas Cohen on 12/29/19 12:14 pm * Is the patient Alert and Oriented? Yes * How many steps to enter\exit or inside your home? RAMP * PCP Tania Mohr * [facility] [place] * Preadmission Environment Home with Family * ADLs Independent * Equipment Cane * Other Equipment n/a * List name and contact numbers for known caregivers / representatives who currently or will assist patient after discharge: Yina Hadley, , spouse * Verbal permission to speak to the caregivers and representatives has been obtained from the patient. Yes * Community resources currently utilized None * Please name any agencies selected above. n/a * Additional services required to return to the preadmission environment? No * Can the patient safely return to the preadmission environment? Yes * Has this patient been hospitalized within the prior 30 days at any hospital? No Coverage Notice Reviewer: [email or web address] - Douglas Cohen Notice Issued Date-Time: 12/29/2019 11:25 Notice Type: IM Discharge Notice Notice Delivered To: Patient Relationship to Patient: Self Ballpoint Pen Assembly Machine Operator Name: Delivery Method: HAND - Hand Delivered Sarah Days: Prior Verbal Notification: Recipient Understood Notice: Yes Recipient Signature: Yes Med Rec Note Co-signed by Attending: Coverage Notice Comment: DC IMM delivered, explained, signed by the patient, and placed in chart. Last DP export: 12/29/19 11:09 Patient Name: ROSA HADLEY Page [phone] at 1216 All edits/amendments must be made on the electronic document DICTATION DATE: 12/29/19 121 ENGLISH AS A SECOND LANGUAGE INSTRUCTOR: JOSE 12/29/19 1216 RPT#: [id number] DC DATE: STATUS: ADM IN [facility] [address] [place] [address] END OF REPORT
--- NOTE | 2019-12-29 12:23 | NUR ---
Nutrition Education Note: Met with patient. Provided patient with Diabetes education and educational handouts. Discussed which foods contain carbohydrates, how to carb count, and how to have a consistant carbohydrate diet. Discussed how carbohdyrates affect blood sugar in the body. Patient verbalized understanding of material and had no further questions at the time.
--- NOTE | 2019-12-29 13:05 | NUR ---
TELEMETRY RETURNED TO AUTHORS MOTIVATIONAL PATIENT IS BEING DISCHARGED TO HOME.
--- NOTE | 2019-12-29 13:10 | NUR ---
20 GAUGE IV REMOVED FROM RIGHT FOREARM. CATHETER TIP INTACT. NO BLEEDING FROM SITE. 2X2 GAUZE APPLIED AND SECURED WITH BANDAID. PATIENT DISCHARGING TO HOME.
--- NOTE | 2019-12-29 13:17 | NUR ---
DISCHARGE INSTRUCTIONS PROVIDED TO PATIENT AT THIS TIME. PATIENT VERBALIZED UNDERSTANDING OF ALL INSTRUCTIONS PROVIDED.
--- NOTE | 2019-12-29 13:56 | NUR ---
PATIENT LEFT UNIT VIA WHEELCHIAR WITH ALL PERSONAL BELONGINGS. PATIENT IN NO DISTRESS UPON LEAVING UNIT.
--- NOTE | 2019-12-31 09:30 | MORECARE ---
CASE MANAGEMENT DISCHARGE SUMMARY PATIENT: ROSA HADLEY UNIT: [id number] ADM DATE: 12/26/19 AGE: 69 : 50 SEX: M ROOM/BED: D.1015 AUTHOR: ALYSIA PLASCENCIA PHYSICIAN: REFERRING PHYSICIAN: MILO MCGINNIS MD DATE OF SERVICE: 12/31/19 Discharge Plan Patient Name: ROSA HADLEY Facility: [facility]:[place] : 1950 Planned Disposition: Home Anticipated Discharge Date: 12/29/19 Discharge Date: 12/29/2019 Expected LOS: 3 Initial Reviewer: [email or web address] Initial Review Date: 12/26/2019 Generated: 12/31/19 10:30 am Comments DCP- Discharge Planning Updated by [email or web address]: Douglas Cohen on 12/29/19 11:[address] Patient Name: ROSA HADLEY Admission Status: ER Accout number: [id number] Admission Date: 12-26-2019 : 1950 Admission Diagnosis:SHORTNESS OF BREATH Attending: MILO MCGINNIS Current LOS: 3 Anticipated DC Date: 12-29-2019 Planned Disposition: Home Primary Insurance: MEDICARE A & B Discharge Planning Comments: CM met with patient to complete DC plan and needs. CM educated patient on the CM role and verbal consent was given by patient to complete assessment. CM verified patient's address, phone number, and emergency contact phone numbers. Patient lives at home with his spouse, Yina Hadley, . At discharge patient plans to return home and feels this is a safe discharge. The patient has a ramp to navigate to enter the home and it is safe. Patient fills his medications at [facility] [place]. CM discussed availability of home health, rehab services, and medical equipment. Patient declined HHS, SNF, IPR, and DME. The patient neither mentioned nor discussed any other discharge needs and he is satisfied with DC plan. Transportation provider at discharge will be with his spouse, Yina. DC IMM delivered, explained, signed by the patient, and placed in chart. Signed form also left with the patient. CM will continue to follow and will assist as needed with dc plans/needs. Physicist Nuclear: Douglas Cohen DCPIA - Discharge Planning Initial Assessment Updated by [email or web address]: Douglas Cohen on 12/29/19 12:14 pm * Is the patient Alert and Oriented? Yes * How many steps to enter\exit or inside your home? RAMP * PCP Tania Mohr * [facility] [place] * Preadmission Environment Home with Family * ADLs Independent * Equipment Cane * Other Equipment n/a * List name and contact numbers for known caregivers / representatives who currently or will assist patient after discharge: Yina Hadley, , spouse * Verbal permission to speak to the caregivers and representatives has been obtained from the patient. Yes * Community resources currently utilized None * Please name any agencies selected above. n/a * Additional services required to return to the preadmission environment? No * Can the patient safely return to the preadmission environment? Yes * Has this patient been hospitalized within the prior 30 days at any hospital? No Coverage Notice Reviewer: [id number] - Douglas Cohen Notice Issued Date-Time: 12/29/2019 11:25 Notice Type: IM Discharge Notice Notice Delivered To: Patient Relationship to Patient: Self Audio Visual Manager Name: Delivery Method: HAND - Hand Delivered Sarah Days: Prior Verbal Notification: Recipient Understood Notice: Yes Recipient Signature: Yes Med Rec Note Co-signed by Attending: Coverage Notice Comment: DC IMM delivered, explained, signed by the patient, and placed in chart. Last DP export: 12/29/19 11:16 Patient Name: ROSA HADLEY Page [phone] at 0930 All edits/amendments must be made on the electronic document DICTATION DATE: 12/31/19929 COMMERCIAL PORTFOLIO MANAGER: JOSE 12/31/19929 RPT#: [id number] DC DATE:12/29/19 STATUS: DIS IN [facility] [address] [place] [address] END OF REPORT
--- NOTE | 2019-12-31 09:31 | OP ---
PATIENT NAME: ROSA LANDEROS MEDICAL RECORD: [id number] :[birth year] LOCATION:D.M2 D.2115 ADMISSION DATE:12/26/19 SURGEON: NITA MILES MD DATE OF OPERATION: 12/28/2019 PROCEDURE: Left heart catheterization, selective coronary angiography, right femoral artery approach. CATHETERS: A 5-Mongolian sheath, 5/4 left and right Beni, 5/4 pig. The procedure was well tolerated. The patient returned to rajput. Sheath was removed. Adequate hemostasis and ExoSeal device placed. FINDINGS: Left ventriculography in 30-degree STALLWORTH view, severe global hypokinesis, reduced EF 10-15%. CORONARY ANATOMY: LEFT MAIN: Left main is free of disease. LAD: Has luminal irregularities. CIRCUMFLEX: AV groove circ has a subtotal stenosis with large thrombus burden proximal to this lesion. The OM is on separate ostium for the OM. Ramus branch has about 80% stenosis. RIGHT CORONARY ARTERY: Free of disease. PLAN: Intervention to circumflex to obtuse marginal momentarily. DESCRIPTION OF PROCEDURE: A 5-Mongolian sheath was exchanged for a 6-Mongolian sheath. XB LAD 4 curved provided good guiding catheter support. First the subtotal circumflex was addressed with a 3.0 x 15 mm Stefan drug-eluting stent up to 14 atmospheres. Final angiography shows resolution of a subtotal 90% plus stenosis, no significant residual. Next, the OM was addressed using the indwelling BMW wire and aortic stent stenosed OM was addressed with 3.0 x 12 [place] drug-eluting stent up to 14 atmospheres for 45 seconds. Final angiography shows resolution of 80% stenosis with no significant residual. The patient is status post stenting of the obtuse marginal and circumflex. Heparin and Integrilin were used during the case. Plavix was loaded in the lab. Sheath closed with ExoSeal device. We will add Aldactone to underlying myopathic medicines. TRANSINT:[id number] Voice Confirmation ID: [id number] DOCUMENT ID: [id number] NITA MILES MD at 0931 CC: [id number] DICTATION DATE: 12/28/19 1457 INTERNAL COMBUSTION ENGINE INSPECTOR: 12/29/19 0033 DIS IN 12/29/19 [facility] [address] [place] [address]
== END 2019-12-29 13:57 | disposition home or self-care (01) | DRG 246 ==
LOC: D.ER 14:38 → D.M2 17:05 → D.MS 17:05 → D.M2 12-27 15:36
PROVIDERS: Family Medicine; Internal Medicine Cardiovascular Disease; Internal Medicine Interventional Cardiology; ADMIT Family Medicine; ATTEND Family Medicine
PROC: B2111ZZ Fluoroscopy of Multiple Coronary Arteries using Low Osmolar Contrast (ICD-10-PCS; 2019-12-28)
PROC: B2151ZZ Fluoroscopy of Left Heart using Low Osmolar Contrast (ICD-10-PCS; 2019-12-28)
PROC: 027135Z Dilation of Coronary Artery, Two Arteries with Two Drug-eluting Intraluminal Devices, Percutaneous Approach (ICD-10-PCS; principal; 2019-12-28 13:30)
PROC: 4A023N7 Measurement of Cardiac Sampling and Pressure, Left Heart, Percutaneous Approach (ICD-10-PCS; 2019-12-28 13:30)
DX: I25.10 Atherosclerotic heart disease of native coronary artery without angina pectoris (principal); I50.23 Acute on chronic systolic (congestive) heart failure; I42.0 Dilated cardiomyopathy; E11.9 Type 2 diabetes mellitus without complications; I11.0 Hypertensive heart disease with heart failure

== ENCOUNTER → 2020-06-03 14:21 | Outpatient (CLI) | payer MEDICARE, OTHER ==
[2019-12-28 13:02] VITALS: BMI 35.6
[~2020-06-03 14:21] MED LIST changes: +ALDACTONE25 MG PO; +COREG12.5 MG PO; +ENTRESTO 49 MG1 EACH PO; +FUROSEMIDE20 MG PO; +GLIMEPIRIDE2 MG PO; +K-DUR20 MEQ PO; +LIPITOR20 MG PO; +ONDANSETRON ODT8 MG PO; +PLAVIX75 MG PO; +SYMBICORT 16010.2 GM INH; +ZOLOFT50 MG PO
== END | disposition home or self-care (01) ==
LOC: D.MRI 14:21
PROVIDERS: ATTEND Clinical Nurse Specialist Family Health
DX: M54.12 Radiculopathy, cervical region (principal)

== ENCOUNTER 2020-06-23 08:45 | Day surgery (SDC) | payer MEDICARE, OTHER ==
[~2020-06-23] VITALS: Ht 167.6 cm; Wt 104.5 kg
[2020-06-23 09:10] LABS: BASOPHILS 0.4 % (0-2); EOSINOPHILS 2.7 % (0-7); HEMATOCRIT 45.2 % (42.0-54.0); HEMOGLOBIN 14.7 g/dL (13.5-17.5); IMMATURE GRANULOCYTES 0.6 % (0-5); LYMPHOCYTE ABS# 1.63 10x3/uL (1.32-3.57); LYMPHOCYTES 15.8 % (15-50); MCH 31.3 pg (26.0-34.0); MCHC 32.5 g/dL (31.0-37.0); MCV 96.2 fL (80.0-100.0); MEAN PLATELET VOLUME 9.4 fL (7.4-10.4); MONOCYTES 9.3 % (2-11); NEUTROPHIL ABS# 7.34 10x3/uL (1.78-5.38); NEUTROPHILS 71.2 % (40-80); PLATELET COUNT 165 10x3/uL (130-400); RDW 14.2 % (11.5-14.5); WBC 10.3 10x3/uL (4.8-10.8)
[2020-06-23 09:17] LABS: APTT 26.7 SECONDS (22.8-39.4); CALCIUM 9.5 mg/dL (8.5-10.1); CARBON DIOXIDE 27.5 mmol/L (21.0-32.0); INR 1.12 (0.85-1.17); POTASSIUM - SERUM 4.5 mmol/L (3.5-5.1); PROTIME 13.3 SECONDS (11.6-15.0)
[2020-06-23] MEDS ORDERED: OMEPRAZOLE20 M1 PO (09:38)
[2020-06-23] MEDS ORDERED: CARAFATE1 G PO (09:38)
[2020-06-23] MEDS ORDERED: ASCORBIC ACID500 MG PO (09:39)
[2020-06-23] MEDS ORDERED: ENTRESTO 49 MG1 EACH PO (09:40)
[2020-06-23] MEDS ORDERED: PLAVIX75 MG PO (09:40)
[2020-06-23] MEDS ORDERED: MULTI-DAY VITAM1 TAB PO (09:45)
[2020-06-23 09:58] VITALS: BP 153/93; Ht 167.6 cm; Wt 104.5 kg
--- NOTE | 2020-06-23 11:05 | NUR ---
ORDERS FOR F/U CLINIC APPT FAXED. PT NOTIFIED TO EXPECT CALL. DC TEACHING TO PT AND . VERBALIZED UNDERSTANDING. IV DC'D WITH CATHETER INTACT. ASSISTING PT TO DRESS. 1125 PT DC'D VIA WC WITH ALL BELONGINGS AND DC PACKET, ACCOMPANIED BY NURSE VILLASEÑOR TO POV, DRIVING.
--- NOTE | 2020-06-23 18:57 | OP ---
PATIENT NAME: ROSA LANDEROS MEDICAL RECORD: [id number] :50 LOCATION:[facility] ADMISSION DATE: SURGEON: LESLIE TRINH DO DATE OF OPERATION: 06/23/2020 PROCEDURE: EGD with biopsies. INDICATION FOR PROCEDURE: Epigastric pain, change in bowel habits, gas and bloating, nausea and vomiting, altered bowel function. SCOPE: Olympus video gastroscope. MEDICATIONS: Propofol 160 mg IV per anesthesia. ESTIMATED BLOOD LOSS: Minimal. COMPLICATIONS: None. FINDINGS: Informed consent was given. The patient was made comfortable with the above medication. After reaching an adequate level of sedation by slow IV push, the patient was placed on his left side. The endoscope was advanced under direct visualization through the mouth to the second portion of the duodenum with ease. The esophagus appeared normal down to the GE junction. Cold forceps biopsies were taken from the mid esophagus to rule out the presence of eosinophils. At the GE junction, there was evidence of LA class A reflux-induced esophagitis. A cold forceps biopsy was taken from the squamocolumnar junction. The endoscope was advanced beyond the GE junction into the stomach and retroflexed to view the cardia and fundus. There was a small sliding hiatal hernia without associated ulcerations or abnormalities. Throughout the body of the stomach as well as the antrum and prepyloric regions, there were some scattered areas of erythema and granularity and some congestion. Cold forceps biopsies were taken from the antrum and incisura to submit for histopathology and to rule out the presence of H. pylori. The endoscope was advanced beyond the pylorus into the duodenum, which appeared normal to the second portion. Cold forceps biopsies were randomly taken to submit for histopathology. The endoscope was withdrawn from the patient. The patient tolerated the procedure well and there were no complications. IMPRESSIONS: 1. LA class A reflux-induced esophagitis. 2. Small sliding hiatal hernia. 3. Mild gastritis changes. PLAN AND RECOMMENDATIONS: 1. Discharge home when recovery parameters are met. 2. Follow up biopsy specimen results. 3. GERD diet and reflux precautions. 4. Omeprazole 40 mg daily times 60 days. 5. Follow up in GI clinic in 6 to 8 weeks. If there are ongoing symptoms of abdominal pain, gas and bloating, and nausea and vomiting, we will proceed with a gastric emptying scan. TRANSINT:[id number] Voice Confirmation ID: [id number] DOCUMENT ID: [id number] OPERATIVE REPORT [id number] ROSA LANDEROS,LESLIE Martinez DO at 1857 CC: [id number] DICTATION DATE: 06/23/20 1025 ADMISSION NURSE: 06/23/20 1807 [facility] 06/23/20 [place] [id number] [place] [id number]
[2020-06-25] MEDS ORDERED: FLUTICASONE PRO16 GM NASAL (11:03)
[2020-06-25] MEDS ORDERED: VITAMIN B-1250 MCG PO (11:04)
[2020-06-25] MEDS ORDERED: ALDACTONE25 MG PO (11:07)
[2020-06-25] MEDS ORDERED: ASPIRIN81 MG PO (11:08)
== END 2020-06-23 11:25 | disposition home or self-care (01) ==
LOC: D.OPS 08:45
PROVIDERS: Anesthesiology; ATTEND Internal Medicine Gastroenterology
DX: R10.13 Epigastric pain (principal); R19.4 Change in bowel habit; R14.0 Abdominal distension (gaseous); R11.2 Nausea with vomiting, unspecified; R19.5 Other fecal abnormalities; K21.00 Gastro-esophageal reflux disease with esophagitis, without bleeding; K44.9 Diaphragmatic hernia without obstruction or gangrene; K29.70 Gastritis, unspecified, without bleeding

== ENCOUNTER 2020-06-26 05:44 | Day surgery (SDC) | payer MEDICARE, OTHER ==
[~2020-06-26] VITALS: Ht 167.6 cm; Wt 104.3 kg
--- NOTE | ~2020-06-26 | OP ---
PATIENT NAME: ROSA LANDEROS MEDICAL RECORD: [id number] :50 LOCATION:[facility] ADMISSION DATE: SURGEON: NURIA DAVID MD DATE OF OPERATION: 06/26/2020 PREOPERATIVE DIAGNOSIS: Trigger finger, right ring finger. POSTOPERATIVE DIAGNOSIS: Trigger finger, right ring finger. PROCEDURE PERFORMED: Right ring finger trigger release. INDICATIONS FOR THE PROCEDURE: Mr. Landeros is a 69-year-old male with history of triggering and locking right ring finger. Symptoms have been going on for a while now and are getting worse. We attempted an injection, but did not provide any lasting relief. He has elected to proceed with surgery for right ring finger trigger release. Risks, benefits and alternatives of surgery were discussed with the patient and consent was obtained. DESCRIPTION OF PROCEDURE: The patient was met in the holding area where his identity and confirmation of procedure was performed. The right upper extremity was marked. He was taken to the operating room where he was placed supine on the operating table and anesthesia was administered. The tourniquet was applied to the right arm. The right arm was prepped and draped in a sterile fashion. The patient received preoperative antibiotics and timeout was performed prior to initiating the case. On initiation of the case, the arm was exsanguinated and tourniquet was raised. Total tourniquet time was 11 minutes. Incision was made over the distal palmar crease over the ring finger tendon. incised through the skin and subcutaneous tissues, dissecting down to the tendon sheath. He also had some palmar fascia that was contracted in this area that was released. The tendon was identified and the A1 victor hugo was released proximally and distally. The tendon was then retrieved through the wound bed with a hemostat, did not appear to have any further restrictions. The wound was irrigated thoroughly with saline. The site was then closed with 4-0 nylon suture. Sterile dressing was applied. The patient was turned back over to anesthesia where he was awakened and taken to the recovery in stable condition. POSTOPERATIVE PLAN: The patient is going to return home with his family today. Needs to limit strenuous use of the right hand for the next few weeks. We will see him back in clinic in 2 weeks. COMPLICATIONS: None. ESTIMATED BLOOD LOSS: 5 mL. ANESTHESIA: Sedation with peripheral nerve block. TRANSINT:[id number] Voice Confirmation ID: [id number] DOCUMENT ID: [id number] OPERATIVE REPORT [id number] ROSA LANDEROS BRENT M MD CC: [id number] DICTATION DATE: 06/26/20927 DATABASE SUPPORT: 06/26/20 1047 [address] [place] [id number] [place] [id number]
[~2020-06-26 05:44] MED LIST changes: +ASCORBIC ACID500 MG PO; +ASPIRIN81 MG PO; +CARAFATE1 G PO; +FLUTICASONE PRO16 GM NASAL; +MULTI-DAY VITAM1 TAB PO; +OMEPRAZOLE20 M1 PO; +VITAMIN B-1250 MCG PO
[2020-06-26 06:22] LABS: BASOPHILS 0.2 % (0-2); EOSINOPHILS 2.5 % (0-7); HEMATOCRIT 42.2 % (42.0-54.0); HEMOGLOBIN 13.8 g/dL (13.5-17.5); IMMATURE GRANULOCYTES 0.9 % (0-5); LYMPHOCYTE ABS# 1.21 10x3/uL (1.32-3.57); MCH 31.1 pg (26.0-34.0); MCHC 32.7 g/dL (31.0-37.0); MEAN PLATELET VOLUME 9.6 fL (7.4-10.4); MONOCYTES 8.1 % (2-11); NEUTROPHIL ABS# 5.91 10x3/uL (1.78-5.38); NEUTROPHILS 73.3 % (40-80); PLATELET COUNT 177 10x3/uL (130-400); RBC 4.44 10x6/uL (4.20-6.10); RDW 14.1 % (11.5-14.5); WBC 8.1 10x3/uL (4.8-10.8)
[2020-06-26 06:29] LABS: APTT 25.5 SECONDS (22.8-39.4)
[2020-06-26 06:30] LABS: INR 1.04 (0.85-1.17); PROTIME 12.6 SECONDS (11.6-15.0)
[2020-06-26 06:54] LABS: ANION GAP 13.9 mmol/L (8-16); CALCIUM 9.2 mg/dL (8.5-10.1); CARBON DIOXIDE 24.5 mmol/L (21.0-32.0); CREATININE - SERUM 1.6 mg/dL (0.6-1.3); POTASSIUM - SERUM 4.4 mmol/L (3.5-5.1)
[2020-06-26 06:58] VITALS: BP 136/97; Ht 167.6 cm; Wt 104.3 kg
--- NOTE | 2020-06-26 09:20 | NUR ---
STATES NO SENSATION & CAN'T MOVE DIGITS ON RIGHT HAND. PT HAD BLOCK ON RIGHT SIDE.
--- NOTE | 2020-06-26 10:24 | NUR ---
DC INSTRUCTIONS GIVEN TO PT AND , VERBALIZED UNDERSTANDING. PIV REMOVED, CATHETER INTACT, HELPING PT TO DRESS. 1040 PT DC'D VIA WC ACCOMANIED BY BRENNEN TO POV WITH DRIVING, BELONGINGS WITH PT AND , INCLUDING DC PACKET
== END 2020-06-26 10:40 | disposition home or self-care (01) ==
LOC: D.OPS 05:44
PROVIDERS: Anesthesiology; ATTEND Orthopaedic Surgery
DX: M65.341 Trigger finger, right ring finger (principal); M54.12 Radiculopathy, cervical region

== ENCOUNTER → 2020-07-03 09:49 | Outpatient (CLI) | payer MEDICARE, OTHER ==
[2020-06-26 06:58] VITALS: BMI 37.2
== END | disposition home or self-care (01) ==
LOC: D.CT 07-01 11:30
PROVIDERS: ATTEND Nurse Practitioner
DX: R91.1 Solitary pulmonary nodule (principal)

== ENCOUNTER 2020-08-14 05:40 | Day surgery (SDC) | payer MEDICARE, OTHER ==
[2020-08-13 16:40] LABS: BASOPHILS 1.1 % (0-2); EOSINOPHILS 2.2 % (0-7); HEMATOCRIT 40.3 % (42.0-54.0); HEMOGLOBIN 13.6 g/dL (13.5-17.5); LYMPHOCYTES 13.3 % (15-50); MCH 31.7 pg (26.0-34.0); MCHC 33.9 g/dL (31.0-37.0); MCV 93.6 fL (80.0-100.0); MEAN PLATELET VOLUME 7.1 fL (7.4-10.4); MONOCYTES 8.3 % (2-11); NEUTROPHILS 75.1 % (40-80); PLATELET COUNT 205 10x3/uL (130-400); RDW 14.4 % (11.5-14.5); WBC 9.8 10x3/uL (4.8-10.8)
[2020-08-13 16:51] LABS: APTT 26.8 SECONDS (22.8-39.4); INR 1.21 (0.85-1.17); POTASSIUM - SERUM 4.3 mmol/L (3.5-5.1); PROTIME 14.2 SECONDS (11.6-15.0)
[2020-08-13 17:01] LABS: ANION GAP 14.7 mmol/L (8-16); CALCIUM 8.7 mg/dL (8.5-10.1); CARBON DIOXIDE 24.6 mmol/L (21.0-32.0); CREATININE - SERUM 2.1 mg/dL (0.6-1.3)
[~2020-08-14] VITALS: Ht 167.6 cm; Wt 103.6 kg
[2020-08-14] VITALS (15 sets, daily range): BP systolic 107–156; BP diastolic 57–94; Ht 167.6 cm; Wt 103.6 kg
--- NOTE | ~2020-08-14 | OP ---
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 PROCEDURE: Anterior cervical discectomy and fusion at C4-C5 and C5-C6 with PEEK interbody cages and Karli bone allograft with separate anterior cervical plate and screws from C4, C5 and C6, [facility] anterior cervical plate. SURGEON: Karlo German MD DESCRIPTION OF TECHNIQUE: After induction of general endotracheal anesthesia, the patient was positioned supine on the operating table with an interscapular roll. The neck was prepped and draped in the usual sterile fashion. Fluoroscopic x-ray and free air localized the C4-C5 interspace. This was confirmed with fluoroscopic x-ray. After infiltration of 1:100,000 epinephrine with 1% lidocaine, a transverse skin incision was carried out from the midline to the sternocleidomastoid muscle. The platysma was divided with sharp dissection. Using blunt and sharp dissection with Metzenbaum scissors, I proceeded in avascular plane medial to the carotid sheath. The C4-C5 interspace was identified with fluoroscopic x-ray and a spinal needle. The longus colli muscles were elevated from the bodies of C4, C5 and C6. A self-retaining retractors placed deep to the longus colli muscles. [place] distracting pins were placed in the bodies of C4, C5, and C6. Each interspace was incised with a #11 blade. A series of dilators. A series of curettes and pituitary rongeurs were used to remove the disc material as well as the cartilaginous endplate at each interspace at C4-C5 and C5-C6. At C4-C5 and C5-C6, the osteophytes were drilled away, the posterior longitudinal ligament was removed with Cloward rongeurs. Following this, the dura was decompressed at C4-C5 and C5-C6. A PEEK interbody cages placed in each interspace under distraction. Prior to this, this was filled with Karli bone allograft. A separate anterior cervical plate and screws was used to span the C4, C5, and C6 vertebral bodies. Self-drilling screws were placed through the holes in the plate. Locking cams were tightened down over the screw heads. Good position of the hardware was confirmed with fluoroscopic x-ray. The wound was irrigated with copious amounts of Ancef irrigant solution. The platysma and subdermal layer closed with interrupted 4-0 Vicryl suture. The skin was reapproximated with Steri-Strips and benzoin. A sterile dressing was applied to the wound. The patient was awakened in good condition and taken to recovery. All counts were reported as correct. Estimated blood loss was minimal. TRANSINT:[id number] Voice Confirmation ID: [id number] DOCUMENT ID: [id number] OPERATIVE REPORT [id number] ROSA LANDEROS JOHN MD CC: [id number] DICTATION DATE: 08/18/20 1156 DIAMOND SANDER: 08/18/202009 [facility] 08/15/[address] [address]
[~2020-08-14 05:40] MED LIST changes: +BAYER CHEWABLE81 MG PO; +CENTRUM COMPLE1 EACH PO; -OMEPRAZOLE20 M1 PO; +OMEPRAZOLE40 MG PO; +TYLENOL W/CODEI1 TAB PO
[2020-08-15] VITALS (7 sets, daily range): BP systolic 120–152; BP diastolic 56–94
--- NOTE | 2020-08-15 04:55 | NUR ---
TAKING PATIENT BP MANUALLY. PATIENT BP LOWER THAN THOSE SHOWING ON MONITOR. CORRECT BP CHARTED.
[2020-08-15] MEDS ORDERED: MEDROL DOSE PACK4 MG PO (08:33)
[2020-08-15] MEDS ORDERED: HYDROCODON-ACE1 EA10 PO (08:34)
== END 2020-08-15 12:00 | disposition home or self-care (01) ==
LOC: D.OPS 05:40 → D.ICU 11:32 → D.OPS 08-15 12:00
PROVIDERS: Anesthesiology; ATTEND Neurological Surgery
DX: M50.13 Cervical disc disorder with radiculopathy, cervicothoracic region (principal); M25.78 Osteophyte, vertebrae; G95.9 Disease of spinal cord, unspecified; F17.200 Nicotine dependence, unspecified, uncomplicated; E11.9 Type 2 diabetes mellitus without complications